=== PATIENT | male | born 1970 | race Caucasian/White ===

== ENCOUNTER 2017-05-05 16:45 | Emergency (ER) | payer OTHER ==
--- NOTE | ~2017-05-05 | CR72 ---
[facility] A Service of [facility] & [facility] RADIOLOGY TEXT RESULTS PATIENT: PRECIOUS PRYOR LOCATION: [facility] : [birth year] UNIT #: [id number] AGE: [address]: Jose Elias Ramachandran MD SEX: M ORDER DR: [id number] [facility] [address] [place], [place] [address] [id number] MR#: [id number] Acc #: [id number] NAME: PRECIOUS PRYOR : 1970 SEX: M STUDY DATE/TIME: 05/05/2017 18:56 UNIT: [facility] ROOM: STUDY DESCRIPTION: CR Chest Single View Portable Attending Physician: Jose Elias Ramachandran M.D. Ordering Physician: Jose Elias Ramachandran M.D. Primary Care Physician: No Primary Care Physician MEDICAL IMAGING REPORT This report is preliminary unless electronic signature is present EXAM Portable chest 05/05/2017 HISTORY 47-year-old male with chest pain beginning today. COMPARISON Chest 11/20/2015. FINDINGS Frontal chest demonstrates clear lungs. No pleural effusion or pneumothorax. Heart size and mediastinum are normal. Pulmonary vasculature normal. IMPRESSION No acute cardiopulmonary findings. Dictated by... Blake Estrella M.D. THIS IS AN ELECTRONICALLY VERIFIED REPORT Blake Estrella M.D. at 05/06/2017 2:17 PM JUNIE/heidi TD: 05/06/2017 13:33 JOB #: [id number] MEDICAL IMAGING REPORT Page 1 of 1 COPY
--- NOTE | ~2017-05-05 | EKG ---
PATIENT: PRECIOUS PRYOR UNIT #: [id number] Ventricular Rate: 106 BPM Atrial Rate: 106 BPM P-R Interval: 102 ms QRS Duration: 100 ms Q-T Interval: 354 ms QTC Calculation(Bezet): 470 ms P [place]: 63 degrees Calculated R [place]: 81 degrees Calculated T [place]: 70 degrees Diagnosis Line: Sinus tachycardia with short ME Diagnosis Line: Otherwise normal ECG Diagnosis Line: When compared with ECG of 01-NOV-2016 16:55, Diagnosis Line: No significant change was found Diagnosis Line: Confirmed by JORDI GROSS MD ([id number]) on Diagnosis Line: 05/06/2017 3:52:06 PM INTERPRETING MD: GINNY BARNEY
[~2017-05-05 16:45] MED LIST: AUGMENTIN PO; CIPRO PO; CLEOCIN PO; COLACE PO; NO MEDICATIONS; PERCOCET5/325 PO
[2017-05-05 18:46] LABS: BASOPHIL# 0.1 X10e3 (0-0.3); BASOPHIL% 0.7 % (0-2.5); EOSINOPHIL# 0.4 X10e3 (0-0.7); EOSINOPHIL% 3.1 % (0.0-7.0); HEMATOCRIT 43.2 % (38.0-50.0); HEMOGLOBIN 14.1 gm/dL (13.0-16.0); LYMPHOCYTE# 1.6 X10e3 (1.0-3.5); LYMPHOCYTE% 13.5 % (17.0-45.0); MEAN CELL VOLUME 87.6 FL (83-96); MEAN CORPUSCULAR HEMOGLOBIN 28.7 PG (28-34); MEAN CORPUSCULAR HGB CONC 32.7 g/dL (30-36); MEAN PLATELET VOLUME 8.7 FL (6.5-11.5); MONOCYTE# 0.9 X10e3 (0-1.0); MONOCYTE% 7.7 % (3.0-12.0); NEUTROPHIL# 8.7 X10e3 (1.5-7.1); PLATELET COUNT 252 X10e3 (140-420); RED BLOOD COUNT 4.93 X10e (3.90-5.60); RED CELL DISTRIBUTION WIDTH 13.8 % (11.0-15.5); WHITE BLOOD COUNT 11.6 X10e3 (4.0-10.5)
[2017-05-05 18:47] LABS: DIFF IND NO
[2017-05-05 19:11] LABS: POC - CKMB 5.1 ng/mL (0.0-7.9); POC - TROPONIN <0.05 ng/mL (<=0.05)
[2017-05-05 19:12] LABS: ALBUMIN SERUM 4.3 g/dL (3.5-5.0); BILIRUBIN, DIRECT 0.2 mg/dL (0.0-0.2); BILIRUBIN,TOTAL 1.2 mg/dL (0.2-2.0); BUN/CREATININE RATIO 15.45; CALCIUM SERUM 9.3 mg/dL (8.4-10.2); CREATININE SERUM 1.1 mg/dL (0.6-1.4); GLOM FILT RATE Estimated 79.5 mL/min (>60); POTASSIUM 3.6 mmol/L (3.5-5.1); PROTEIN TOTAL SERUM 7.6 g/dL (6.0-8.3)
== END 2017-05-05 20:45 | disposition home or self-care (01) ==
LOC: CED 16:45
PROVIDERS: Emergency Medicine
DX: F41.1 Generalized anxiety disorder (principal); F17.210 Nicotine dependence, cigarettes, uncomplicated
CPT/HCPCS: 36415; 71010; 80048; 80076; 82553; 84484; 85025; 93005; 96361; 96374; 99283; J2060

== ENCOUNTER 2017-05-29 15:00 | Inpatient (IN) | payer OTHER ==
[~2017-05-29] VITALS: Ht 170.2 cm; Wt 81.6 kg
--- NOTE | ~2017-05-29 | PN ---
Unit #: [id number] #: [id number] Patient: PRECIOUS PRYOR [id number] [facility] [address] [place] [address] [id number] I MR#: [id number] NAME: PRCEIOUS PRYOR JR ROOM: P181 Age: 47 Sex: M Admission Date: 05/29/2017 : 1970 Attending Physician: Sofia Adams M.D. Admitting Physician: Sofia Adams M.D. Primary Care Physician: Primary Care Physician Sulema CHANDLER PROGRESS NOTES DATE OF SERVICE 06/05/2017 DISCUSSION Mr. Pryor is a 47-year-old white male who was seen today. Chart was reviewed and case was discussed with staff. He appears to be doing better as he has been coming out more and having meals with peers and socializing and interacting. Meanwhile, he has been taking the medications and tolerating them fairly well with no reported side effects. MENTAL STATUS EXAMINATION Middle-aged white male who is casually dressed with fair personal hygiene, appears to be in no acute distress or discomfort. The patient was awake and alert with intact orientation. His mood is anxious with a congruent affect. He denies any suicidal or homicidal ideations. His insight and judgment remain slightly impaired. TREATMENT PLAN 1. We will continue him on his current medications and treatment protocol. We will monitor his response to the medications and make further adjustments as needed. 2. We will continue to follow up. Dictated by... Nik Jeff/ximenag TD: 06/05/2017 11:46 JOB #: [id number] [facility] PROGRESS NOTES Page 1 of 1 X Sofia Adams MD X PROGRESS NOTE
--- NOTE | ~2017-05-29 | DS ---
Unit #: [id number] #: [id number] Patient: PRECIOUS PRYOR JR [id number] [facility] [place] [place] [address] [id number] I MR#: [id number] NAME: PRECIOUS PRYOR JR ROOM: P181 Age: 47 Sex: M Admission Date: 05/29/2017 : 1970 Discharge Date: 06/06/2017 Attending Physician: Sofia Adams M.D. Primary Care Physician: Primary Care Physician No DISCHARGE SUMMARY IDENTIFICATION DATA Mr. Pryor is a 47-year-old single white male who is a resident of [place], [place], and was brought to the hospital as a return from emergency room on a 72-hour hold. DISCHARGE DIAGNOSES PSYCHIATRIC: Major depressive disorder, recurrent, moderate, without psychotic features. Methamphetamine dependence, moderate. MEDICAL: None. STRESSORS: Mild psychosocial stressors. HISTORY OF PRESENT ILLNESS Same as in initial psychiatric evaluation. PAST PSYCHIATRIC HISTORY Same as in initial psychiatric evaluation. PAST MEDICAL HISTORY Same as in initial psychiatric evaluation. HOSPITAL COURSE The patient was admitted to the adult chemical dependence unit at [facility] lizzie Johnson and was oriented to the hospital environment. Routine p.r.n. medications were initiated, and he was started back on his home medications, and Wellbutrin XL 150 mg in the morning was also initiated to help with depression, and was closely monitored. he was taking the medications regularly and was tolerating them fairly well and was able to show a decent therapeutic response with improvement in depression and anxiety and was willing to continue treatment on outpatient basis. As such it was decided that he will be discharged, and we will continue treatment on outpatient basis. DISCHARGE MEDICATION Wellbutrin XL 150 mg in the morning for depression. CONDITION AT DISCHARGE Stable. PROGNOSIS Fair. Unit #: [id number] #: [id number] Patient: PRECIOUS PRYOR JR Dictated by... Nik Jeff/fortino TD: 06/06/2017 07:41 JOB #: [id number] DISCHARGE SUMMARY Page 1 of 1 X Sofia Adams MD X DISCHARGE SUMMARY
--- NOTE | ~2017-05-29 | PN ---
Unit #: [id number] #: [id number] Patient: PRECIOUS PRYOR JR [id number] [facility] [address] [place] [address] [id number] I MR#: [id number] NAME: PRECIOUS PRYOR JR ROOM: P181 Age: 47 Sex: M Admission Date: 05/29/2017 : 1970 Attending Physician: Sofia Adams M.D. Admitting Physician: Sofia Adams M.D. Primary Care Physician: Primary Care Physician Sulema CHANDLER PROGRESS NOTES DATE 06/03/2017 DISCUSSION Mr. Pryor is a 47-year-old, white male who was seen today and chart was reviewed and case was discussed with the staff. He has been anxious, withdrawn though has not shown any agitation, irritability or behavioral problems and has been cooperative with the treatment recommendations. He has been taking the medication and tolerating them fairly well with no reported side effects. MENTAL STATUS EXAM Middle-aged white male who was casually dressed with fair personal hygiene, appears to be in no acute distress or discomfort. He was awake and alert with intact orientation. His mood was anxious with congruent affect. His speech was slow and goal directed. He denies any suicidal or homicidal ideation. Also, denies any auditory or visual hallucinations. His insight and judgement are slightly impaired. TREATMENT PLAN 1. We will continue him on his current medications and treatment protocol. We will monitor his response to the medication and make further adjustments as needed. 2. We will continue to follow up. Dictated by... Nik Jeff/avelina TD: 06/03/2017 21:43 JOB #: [id number] Unit #: [id number] #: [id number] Patient: PRECIOUS PRYOR JR [facility] PROGRESS NOTES Page 1 of 1 X Sofia Adams MD PROGRESS NOTE
--- NOTE | ~2017-05-29 | HP ---
Unit #: [id number] #: [id number] Patient: PRECIOUS PRYOR JR [id number] [place] [address] [id number] I MR#: [id number] NAME: PRECIOUS PRYOR JR ROOM: P181 Age: 47 Sex: M Admission Date: 05/29/2017 : 1970 Attending Physician: Sofia Adams M.D. Admitting Physician: Sofia Adams M.D. Primary Care Physician: Primary Care Physician No HISTORY AND PHYSICAL HISTORY OF PRESENT ILLNESS Precious is a 47 year old admitted to [facility] because of his drug use which includes methamphetamine. He is admitted very psychotic so his history is taken from his chart. PAST MEDICAL HISTORY 1. History of illicit substance abuse to include methamphetamine. 2. BPH. PAST SURGICAL HISTORY Nothing reported. ALLERGIES No known drug allergies. SOCIAL HISTORY He does not smoke. Drinks two fifths of liquor on a daily basis. Admits to using marijuana frequently and has a history of other illicit substance abuse to include IV meth. FAMILY HISTORY Medically noncontributory. REVIEW OF SYSTEMS He does not answer questions appropriately. There are no reports of nausea, vomiting or diarrhea. He has had no cough or increased temperature. CURRENT MEDICATIONS Detox protocol. PHYSICAL EXAMINATION GENERAL: Alert, well-nourished, in no apparent distress. VITAL SIGNS: Blood pressure 110/64, heart rate 80, respirations 16, temperature 98.6. WEIGHT: 180. HEIGHT: 5 feet 7 inches. SKIN: Warm and dry without rash or lesion. HEENT: Normocephalic. TMs not viewed. Oral and nasal passages clear. Conjunctivae clear. PERRLA. EOMs intact. NECK: Supple without lymphadenopathy or thyromegaly. HEART: Regular rate and rhythm without murmur. LUNGS: Clear. ABDOMEN: Soft, nontender. Unit #: [id number] #: [id number] Patient: PRECIOUS PRYOR JR : Not done. EXTREMITIES: No evidence of cyanosis, clubbing or edema. Moves all without focal deficit. NEUROLOGICAL: Grossly within normal limits. Cranial Nerves: II: Visual calderon are intact. III, IV AND : Extraocular movements are intact. Pupils are equal, round and reactive to light. V: Facial sensation is grossly normal. VII: Facial movements and expression are normal. VIII: Auditory acuity grossly intact. IX, X: Uvula is midline. Phonation is normal. XI: Patient shrugs shoulders and turns head normally. XII: Tongue protrudes in the midline. Sensory and Motor Function: Sensory and motor sensation is grossly normal. Motor: moves all extremities well. Coordination: Gait is normal. Deep Tendon Reflexes: Intact. IMPRESSION Psychiatric admission. RECOMMENDATIONS PSYCHIATRIC: Per psychiatrist. MEDICAL: See no contraindication to participate in facility's activities. MEDICAL PROGNOSIS Good. MEDICAL CONDITION Stable. Dictated by... Nisha Vaughn P.A.-C. for Nik Suarez/narciso TD: 05/30/2017 17:49 JOB #: [id number] HISTORY AND PHYSICAL Page 1 of 1 X Nisha Vaughn X HISTORY AND PHYSICAL
--- NOTE | ~2017-05-29 | PA ---
Unit #: [id number] #: [id number] Patient: PRECIOUS BENTLEY JR [id number] [facility] [address] [place] [address] [id number] I MR#: [id number] NAME: PRECIOUS BENTLEY JR ROOM: P181 Age: 47 Sex: M Admission Date: 05/29/2017 : 1970 Date of Assessment: 05/30/2017 Attending Physician: Sofia Adams M.D. Admitting Physician: Sofia Adams M.D. Primary Care Physician: Primary Care Physician No PSYCHIATRIC ASSESSMENT DATE OF SERVICE 05/30/2017. IDENTIFYING DATA Mr. Bentley is a 47-year-old single white male, who is a resident of [place], [place], and was brought to the hospital from the emergency room on a 72 hours hold. CHIEF COMPLAINT "Suicidal ideation with plan to jump off the roof this morning." HISTORY OF PRESENT ILLNESS Mr. Bentley is a 47-year-old white male, who was taken via ambulance to the Emergency [facility]iatric [facility] at [facility], where he was seen to be exhibiting significant paranoia related to methamphetamine-induced psychosis and also reported having suicidal ideation with a plan to jump off the roof this morning, but was seen to be showing very poor insight into his situation, refusing treatment and as such, 72 hours hold was initiated and the patient was transferred to us. The patient reports that he relapsed on methamphetamine 5 months ago after being released from residential and reports increasing depression, anxiety, irritability, daily isolation, crying spells, and feelings of hopelessness and helplessness, and suicidal ideation with intent and plan and as such, recommendation for inpatient level of care for safety and stabilization was made and the patient was transferred to us. SUBSTANCE ABUSE HISTORY The patient reports history of alcohol, cannabis, and methamphetamine abuse and currently methamphetamine appears to be his drug of choice. PAST PSYCHIATRIC HISTORY The patient has not had any prior inpatient or outpatient psychiatric treatment. Review of the medical records indicate currently he is not seeing a psychiatrist, and is not taking any psychotropic medications. PAST MEDICAL HISTORY Significant for benign prostatic hypertrophy and acute renal disease. ALLERGIES No known medication allergies. PERSONAL AND SOCIAL HISTORY A 47-year-old white male, who reports that he is single, unemployed, and Unit #: [id number] #: [id number] Patient: PRECIOUS BENTLEY JR lives alone and has poor social support system. MENTAL STATUS EXAMINATION Middle-aged white male who was casually dressed with fair personal hygiene, appears to be in no acute distress or discomfort. He was awake and alert on interaction with intact orientation to time, place, and person. His mood was anxious and depressed with a congruent affect. His speech was slow and restricted in content. His thought processes were disorganized with some looseness of associations and suicidal ideations. His insight and judgment remain significantly impaired. DIAGNOSTIC IMPRESSION Psychiatric: Major depressive disorder, recurrent, moderate, without psychotic features; methamphetamine dependence, moderate. Medical: None. Stressors: Moderate psychosocial stressors. TREATMENT PLAN 1. The patient has presented with history of substance abuse and mood disorder, and has been decompensating and will need inpatient hospitalization for detoxification, safety, and stabilization. We will start him back on his home medications. We will adjust the medications and monitor response. 2. Supportive therapy was provided to the patient. 3. Safe, structured, and nourishing environment will be provided. ESTIMATED LENGTH OF STAY 5 to 7 days. ABILITY TO HELP SELF Limited. WILLINGNESS TO HELP SELF The patient appears to be willing to help self. STRENGTHS 1. Communicative. 2. Cooperative. PROBLEMS 1. Chronic dysphoric symptoms. 2. Poor social support system. DISCHARGE CRITERIA This will be contingent upon the patient's ability to show resolution of his depression and anxiety and his ability to stay safe to himself, particularly after discharge from the hospital. Dictated by... Nik Jeff/monse TD: 05/30/2017 08:15 JOB #: [id number] Unit #: [id number] #: [id number] Patient: PRECIOUS BENTLEY JR PSYCHIATRIC ASSESSMENT Page 1 of 1 X Sofia Adams MD X PSYCHIATRIC ASSESSMENT
--- NOTE | ~2017-05-29 | PN ---
Unit #: [id number] #: [id number] Patient: PRECIOUS PRYOR [id number] [facility] [address] [place] [address] [id number] I MR#: [id number] NAME: PRECIOUS PRYOR JR ROOM: P181 Age: 47 Sex: M Admission Date: 05/29/2017 : 1970 Attending Physician: Sofia Adams M.D. Admitting Physician: Sofia Adams M.D. Primary Care Physician: Primary Care Physician Sulema CHANDLER PROGRESS NOTES DATE OF SERVICE: 06/01/2017 SUBJECTIVE Mr. Pryor is a 47-year-old white male, who was seen today and chart was reviewed, and the case was discussed with the staff. He has been anxious and withdrawn, though has not shown any agitation and was somnolent and was cooperative with the treatment recommendations and has been taking the medications and tolerating them fairly well with no reported side effects. MENTAL STATUS EXAMINATION Middle-aged white male, who was casually dressed with fair personal hygiene, appears to be in no acute distress or discomfort. He was awake and alert on interaction with intact orientation. His mood was anxious with a congruent affect. His speech was slow and goal directed. He denies any suicidal or homicidal ideations and also denies any auditory or visual hallucinations. His insight and judgment remain slightly impaired. TREATMENT PLAN 1. We will continue him on his current medications and treatment protocol. We will monitor his response and make further adjustments as needed. 2. We will continue to follow up. Dictated by... Nik Jeff/monse TD: 06/01/2017 15:45 JOB #: [id number] [facility] PROGRESS NOTES Page 1 of 1 X Sofia Adams MD PROGRESS NOTE
--- NOTE | ~2017-05-29 | PN ---
Unit #: [id number] #: [id number] Patient: PRECIOUS PRYOR JR [id number] [facility] [address] [place] [address] [id number] I MR#: [id number] NAME: PRECIOUS PRYOR JR ROOM: P181 Age: 47 Sex: M Admission Date: 05/29/2017 : 1970 Attending Physician: Sofia Adams M.D. Admitting Physician: Sofia Adams M.D. Primary Care Physician: Primary Care Physician Sulema BENSON NOTES DATE OF SERVICE 06/04/2017 DISCUSSION Mr. Pryor is a 47-year-old white male who was seen today. Chart was reviewed and case was discussed with the staff. He remains anxious, withdrawn, depressed, and rather seclusive to himself. Meanwhile, he has been complaining of nightmares at night. However, no agitation or aggression has been reported, and he has been taking the medications and tolerating them fairly well with no reported side effects. MENTAL STATUS EXAMINATION Middle-aged white male who is casually dressed with fair personal hygiene, appears to be in no acute distress or discomfort. The patient was awake and alert with impaired attention and concentration. His mood is anxious with congruent affect. Speech is slow and restricted in content. He denies any suicidal or homicidal ideations. His insight and judgment remain slightly impaired. TREATMENT PLAN 1. We will continue him on his current medications and treatment protocol. We will monitor his response to the medications and make further adjustments as needed. 2. We will continue to follow up. Dictated by... Nik Jeff/fortino TD: 06/04/2017 14:43 JOB #: [id number] Unit #: [id number] #: [id number] Patient: PRECIOUS PRYOR JR [facility] PROGRESS NOTES Page 1 of 1 X Sofia Adams MD PROGRESS NOTE
--- NOTE | ~2017-05-29 | PN ---
Unit #: [id number] #: [id number] Patient: PRECIOUS BENTLEY [id number] [facility] [address] [place] [address] [id number] MR#: [id number] NAME: PRECIOUS BENTLEY JR ROOM: P181 Age: 47 Sex: M Admission Date: 05/29/2017 : 1970 Attending Physician: Sofia Adams M.D. Admitting Physician: Sofia Adams M.D. Primary Care Physician: Primary Care Physician Sulema CHANDLER PROGRESS NOTES DATE OF SERVICE 05/31/2017 DISCUSSION Mr. Bentley is a 47-year-old white male who was seen today. Chart was reviewed and case was discussed with staff. He has been anxious, withdrawn, and rather seclusive to himself. Meanwhile, he has been cooperative with treatment recommendations and has been taking the medications and tolerating them fairly well with no reported side effects. MENTAL STATUS EXAMINATION Middle-aged white male who is casually dressed with fair personal hygiene. Appears to be in no acute distress or discomfort. He was awake and alert on interaction with intact orientation. His mood is anxious with congruent affect. He denies any suicidal or homicidal ideations. His insight and judgment remain slightly impaired. TREATMENT PLAN 1. We will continue him on his current medications and treatment protocol. We will monitor his response to medications and make further adjustments as needed. 2. We will continue to follow up. Dictated by... Sofia Adams M.D. IAA/bzg TD: 05/31/2017 18:02 JOB #: [id number] [facility] PROGRESS NOTES Page 1 of 1 X Sofia Adams MD PROGRESS NOTE
--- NOTE | ~2017-05-29 | PN ---
Unit #: [id number] #: [id number] Patient: PRECIOUS PRYOR [id number] [facility] [address] [place] [address] [id number] I MR#: [id number] NAME: PRECIOUS PRYOR JR ROOM: P181 Age: 47 Sex: M Admission Date: 05/29/2017 : 1970 Attending Physician: Sofia Adams M.D. Admitting Physician: Sofia Adams M.D. Primary Care Physician: Primary Care Physician Sulema BENSON NOTES DATE OF SERVICE: 06/02/2017 SUBJECTIVE Mr. Pryor is a 47-year-old white male, who was seen today and chart was reviewed and the case was discussed with the staff. He has been anxious and withdrawn, and rather seclusive to himself. Meanwhile, he has been cooperative with the treatment recommendations and has been taking the medications and tolerating them fairly well with no reported side effects. MENTAL STATUS EXAMINATION Middle-aged white male, who was casually dressed with fair personal hygiene, appears to be in no acute distress or discomfort. He was awake and alert with intact orientation. His mood was anxious with a congruent affect. His speech was slow and restricted in content. He denies any suicidal or homicidal ideations and also denies any auditory or visual hallucinations. His insight and judgment remain slightly impaired. TREATMENT PLAN 1. We will continue him on his current medications and treatment protocol. We will monitor his response to the medications and make further adjustments as needed. 2. We will continue to follow up. Dictated by... Nik Jeff/monse TD: 06/02/2017 11:26 JOB #: [id number] [facility] PROGRESS NOTES Page 1 of 1 X Sofia Adams MD PROGRESS NOTE
[2017-05-30 09:46] LABS: BASOPHIL# 0.1 X10e3 (0-0.3); BASOPHIL% 0.8 % (0-2.5); EOSINOPHIL# 0.4 X10e3 (0-0.7); EOSINOPHIL% 6.2 % (0.0-7.0); HEMOGLOBIN 14.2 gm/dL (13.0-16.0); LYMPHOCYTE# 1.6 X10e3 (1.0-3.5); MEAN CELL VOLUME 89.1 FL (83-96); MEAN CORPUSCULAR HEMOGLOBIN 29.5 PG (28-34); MEAN CORPUSCULAR HGB CONC 33.1 g/dL (30-36); MEAN PLATELET VOLUME 9.2 FL (6.5-11.5); MONOCYTE# 0.5 X10e3 (0-1.0); MONOCYTE% 7.5 % (3.0-12.0); NEUTROPHIL# 4.4 X10e3 (1.5-7.1); NEUTROPHIL% 62.5 % (40-75); PLATELET COUNT 225 X10e3 (140-420); RED BLOOD COUNT 4.83 X10e (3.90-5.60); RED CELL DISTRIBUTION WIDTH 14.1 % (11.0-15.5)
[2017-05-30 09:50] LABS: ALBUMIN SERUM 3.9 g/dL (3.5-5.0); BILIRUBIN,TOTAL 1.9 mg/dL (0.2-2.0); BUN/CREATININE RATIO 17.77; CALCIUM SERUM 8.8 mg/dL (8.4-10.2); CREATININE SERUM 0.9 mg/dL (0.6-1.4); DIFF IND NO; GLOM FILT RATE Estimated 101.4 mL/min (>60); POTASSIUM 4.5 mmol/L (3.5-5.1); PROTEIN TOTAL SERUM 6.6 g/dL (6.0-8.3)
[2017-05-31 13:13] LABS: URINE APPEARANCE CLEAR; URINE BILIRUBIN NEG (NEG); URINE BLOOD NEG (NEG); URINE COLOR YELLOW; URINE GLUCOSE NEG (NEG); URINE KETONE NEG (NEG); URINE LEUKOCYTE ESTERASE NEG (NEG); URINE NITRATE NEG (NEG); URINE PH 6.5 (5-8); URINE PROTEIN NEG (NEG); URINE SPECIFIC GRAVITY 1.022 (1.003-1.035)
== END 2017-06-06 11:15 | disposition home or self-care (01) | DRG 885 ==
LOC: P1E 18:24
PROVIDERS: Psychiatry & Neurology Psychiatry
PROC: HZ2ZZZZ Detoxification Services for Substance Abuse Treatment (ICD-10-PCS; principal; 2017-05-29)
DX: F33.1 Major depressive disorder, recurrent, moderate (principal); F15.20 Other stimulant dependence, uncomplicated; R45.851 Suicidal ideations
CPT/HCPCS: 80053; 81003; 85025; 86592

== ENCOUNTER 2017-06-17 16:00 | Emergency (ER) | payer OTHER ==
[~2017-06-17] VITALS: Ht 170.2 cm; Wt 81.6 kg
[2017-06-17 17:01] LABS: BASOPHIL# 0.1 X10e3 (0-0.3); BASOPHIL% 0.9 % (0-2.5); EOSINOPHIL# 0.1 X10e3 (0-0.7); EOSINOPHIL% 0.5 % (0.0-7.0); HEMATOCRIT 41.8 % (38.0-50.0); HEMOGLOBIN 14.2 gm/dL (13.0-16.0); LYMPHOCYTE# 1.2 X10e3 (1.0-3.5); LYMPHOCYTE% 12.2 % (17.0-45.0); MEAN CELL VOLUME 88.1 FL (83-96); MEAN CORPUSCULAR HEMOGLOBIN 29.8 PG (28-34); MEAN CORPUSCULAR HGB CONC 33.9 g/dL (30-36); MEAN PLATELET VOLUME 8.5 FL (6.5-11.5); MONOCYTE# 0.8 X10e3 (0-1.0); MONOCYTE% 8.6 % (3.0-12.0); NEUTROPHIL# 7.6 X10e3 (1.5-7.1); NEUTROPHIL% 77.8 % (40-75); PLATELET COUNT 278 X10e3 (140-420); RED BLOOD COUNT 4.75 X10e (3.90-5.60); RED CELL DISTRIBUTION WIDTH 13.9 % (11.0-15.5); WHITE BLOOD COUNT 9.8 X10e3 (4.0-10.5)
[2017-06-17 17:08] LABS: DIFF IND NO
[2017-06-17 17:52] LABS: ALCOHOL BLOOD <5 mg/dL (0); BLOOD UREA NITROGEN 25 mg/dL (9-23); BUN/CREATININE RATIO 22.72; CALCIUM SERUM 8.9 mg/dL (8.4-10.2); CARBON DIOXIDE 19 mmol/L (22-31); CHLORIDE 104 mmol/L (100-111); CREATININE SERUM 1.1 mg/dL (0.6-1.4); GLOM FILT RATE Estimated 79.5 mL/min (>60); GLUCOSE FASTING 110 mg/dL (70-110); POTASSIUM 3.1 mmol/L (3.5-5.1); SODIUM 138 mmol/L (135-145)
== END 2017-06-18 03:37 | disposition home or self-care (01) ==
LOC: CED 16:00
PROVIDERS: Student in an Organized Health Care Education/Training Program
DX: F15.129 Other stimulant abuse with intoxication, unspecified (principal); F29 Unspecified psychosis not due to a substance or known physiological condition; Z90.89 Acquired absence of other organs
CPT/HCPCS: 36415; 80048; 85025; 96361; 96372; 96374; 99285; G0480; J1630; J3486